=== PATIENT | female | born 1955 | race African-American/Black ===

== ENCOUNTER → 2016-09-17 | Outpatient (CLI) | payer OTHER ==
[~2016-09-17] MED LIST: HYDR-5688 PO; ONDA4TAB10 SL
== END | disposition home or self-care (01) ==
LOC: C.PAPS 11:18
PROVIDERS: ATTEND Obstetrics & Gynecology
DX: Z12.4 Encounter for screening for malignant neoplasm of cervix (principal)

== ENCOUNTER → 2016-10-01 | Outpatient (CLI) | payer OTHER ==
--- NOTE | 2016-10-03 13:19 | MAMMOGRAPHY REPORT ---
BILATERAL DIGITAL DIAGNOSTIC MAMMOGRAM TOMOSYNTHESIS WITH CAD AND TARGETED BILATERAL ULTRASOUND: 10/01 CLINICAL HISTORY: 60-year-old woman presents for bilateral screening mammography. She has a history of prior benign left breast biopsy and breast pain. No new palpable mass, skin changes or nipple d ischarge. TECHNIQUE: Bilateral breast tomosynthesis in addition to standard 2D mammography was performed. Cur rent study was also evaluated with a Computer Aided Detection (CAD) system. COMPARISON: Comparison is made to exams dated: 03/17/2015 ultrasound, 03/17/2015 mammogram, 014 ultrasound biopsy, 03/17/2014 mammogram, 02/09/2014 ultrasound, and 02/09/2014 mammogram - [facility]. BREAST COMPOSITION: The tissue of both breasts is heterogeneously dense, which may obscure small ma sses. FINDINGS: There is a stable ribbon shaped metallic biopsy marker with a partially calcified round ma ss in the lower inner, 8:00 left breast. There is stable asymmetry along the anterior aspect of thi s biopsied mass. There is a 6.6 mm asymmetry in the middle of the left breast, along the posterior nipple line on the MLO view that is increasingly conspicuous comparing to the prior mammograms. The symphysis images are equivocal for mass. There is also increased nodularity in the lateral, middle one third left breast on the CC view. Other increasingly conspicuous nodular asymmetries are seen along the right posterior nipple line and lateral to the posterior nipple line on the CC view. No f ocal area of architectural distortion or new suspicious clustered microcalcifications are seen bilat erally. Real-time high-resolution ultrasound was performed breasts. Scattered anechoic and hypoechoic kylie s are seen bilaterally. In particular, there is an elongated parallel hypoechoic solid versus cysti c mass in the 12:00 left breast, 2 cm from the nipple, measuring 5.0 x 2.2 x 4.5 mm. A 4.4 mm anech oic benign simple cyst is identified in the 1:00 left breast, 4 cm from the nipple. A 4.0 mm anecho ic cyst is seen in the 1:00 left breast, 2 cm from the nipple.a predominately anechoic cystic appear ing mass is seen in the 1:00 periareolar left breast measuring 5.2 mm. a mixed echogenicity hypoecho ic cystic-appearing mass, possibly representing a cluster of microcysts is identified in the 2:00 le ft breast, 5 cm from the nipple, measuring 4.5 x 2.5 x 5.7 mm. In the 3:00 periareolar left breast, a 3.7 x 2.6 x 3.5 mm hypoechoic solid versus cystic mass is identified. Another probable microcyst cluster is seen in the 4:00 left breast, 2 cm from the nipple, measuring 2.8 x 3.1 x 2.5 mm. 2 abu tting masses are identified in the 8:00 left breast, 1 cm from the nipple, the superficial mass is semi-[place] in shape and deeper mass is round in shape, measuring 9.3 x 9.4 x 7.2 mm in conglomerate . These appear similar in size comparing to the March 2014 ultrasound, at which time they measure d approximately 8.5 x 10.6 x 6.7 mm. Another predominantly anechoic probable microcystic cluster is identified in the 8:00 left breast, 2 cm from the nipple adjacent measuring 3.6 x 3.3 mm. A rounde d anechoic cyst is seen in the left 11:00 breast, 4 cm from the nipple, measuring 3.2 x 3.2 x 3.7 mm . Within the right 12:00 breast, 3 cm from the nipple, there is a oval hypoechoic solid versus cystic mass measuring 3.3 x 2.9 x 6.3 mm. An oval circumscribed hypoechoic solid versus cystic mass in the 1:00 right breast, 3 cm from the nipple, measures 3.6 x 2.3 x 4.5 mm. Another hypoechoic solid caden senait cystic circumscribed mass in the 1:00 right breast, 3 cm from the nipple measures 3.8 x 2.2 x 2. 8 mm. No other discrete solid or cystic mass is seen in the right breast. IMPRESSION: ACR-BI-RADS CATEGORY 3: PROBABLY BENIGN, TARGETED ULTRASOUND ACR-BI-RADS CATEGORY 3: AL OBABLY BENIGN 1. There is increasing mammographic nodularity bilaterally, which is most likely secondary to fibro cystic changes. Multiple anechoic cysts and cyst clusters are seen throughout the left greater than right breast on ultrasound. However, there are a few indeterminate hypoechoic solid versus cystic masses in the breasts for which follow-up is recommended in 6 months. In particular, repeat ultraso und attention to the right 12:00, 1:00 and left 12:00, 1:00, 2:00, 3:00, 8:00 axes is recommended (3 0 minutes). These results recommendations were discussed with the patient at the time of the exam. She federico wall scheduled a follow-up appointment prior to leaving our department. Approximately 10% of breast cancers are not detected with mammography. A negative mammographic repor t should not delay biopsy if a clinically suggestive mass is present. Zonia Cervantes M.D. ay/:10/02/2016 22:15:44 Package Worker: Gloria SANCHEZ(Kajal)(Binta), [facility] letter sent: Follow Up Recommended 3 BI-RADS Code: ACR-BI-RADS Category 3: Probably Benign Ultrasound BI-RADS: ACR-BI-RADS Category 3: P robably Benign
== END | disposition home or self-care (01) ==
LOC: C.MAMM 14:04
PROVIDERS: ATTEND Obstetrics & Gynecology
DX: N64.4 Mastodynia (principal); R92.8 Other abnormal and inconclusive findings on diagnostic imaging of breast

== ENCOUNTER 2016-12-20 12:02 | Observation (INO) | payer OTHER ==
[~2016-12-20] VITALS: Ht 167.6 cm; Wt 79.0 kg
[2016-12-20] MEDS ORDERED: SODIUM CHLORIDE 0.9% 1000ML 1,000 ML IV STA (12:26)
[2016-12-20] MEDS ORDERED: ONDANSETRON INJ 2 MG/ML 2 ML VIAL IV STA (12:26)
[2016-12-20] MEDS ORDERED: KETOROLAC TROMETHAMINE 30 MG/ML VIAL IV STA (12:26)
[2016-12-20] MEDS ORDERED: HYDROmorphone INJ 1 MG/ML SYR IV STA (12:26)
--- NOTE | 2016-12-20 12:54 | EMERGENCY ROOM VISIT NOTE ---
History Report prepared by Brook: Rani Reeves Under the Supervision of: Dr. Delmar Mehta M.D. 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 The pain wraps around into her bilateral back. She is also experiencing nausea and had one episode of vomiting. The patient came to the ED via ambulance and she was given 4 mg Zofran en route. She states that she is feeling better. The patient speaks Nepalese and very minimal Irish. The customer orders clerk was unavailable to translate the patient. Source of History: patient Onset: ELECTRICAL INSTRUMENT TECHNICIAN Position: abdomen (upper) Quality: other (abdominal pain) Timing: worsening Associated Symptoms: + nausea, + vomiting, + back pain (bilateral) Review of Systems See HPI for pertinent positives & negatives. A total of 10 systems reviewed and were otherwise negative. Past Medical & Surgical Medical Problems: (1) Cholelithiasis Surgical Problems: (1) H/O left breast biopsy Family History No pertinent family history Social History Smoking Status: Never Smoker Marital Status: Housing Status: lives with family Current/Historical Medications Scheduled PRN Hydrocodone/Acetaminophen 5MG/325MG ([place] 5MG/325MG), 1-2 TABLET PO Q4H PRN for Pain Allergies Coded Allergies: Morphine (Verified Allergy, Unknown, facial swelling, 12/20/16) Uncoded Allergies: Allergic reaction to unspecified contrast medium (Allergy, Intermediate, DELIRIUM, Swelling, 12/20/16) Unspecified contrast medium Physical Exam Vital Signs Date Time Temp Pulse Resp B/P (MAP) Pulse Ox O2 Delivery O2 Flow Rate FiO2 12/20/16 15:58 68 19 138/71 96 Room Air 12/20/16 13:59 61 16 131/71 96 Room Air 12/20/16 12:27 36.8 68 16 124/74 98 Room Air Physical Exam GENERAL: Patient is a healthy-appearing well-nourished female HEAD: Normocephalic atraumatic EYES: Ocular movements intact pupils equal and react to light OROPHARYNX mucous membranes are moist no exudates present no erythema or edema present NECK: Supple no nuchal rigidity CHEST: Good equal expansion LUNGS: Clear and equal to auscultation CARDIAC: Normal S1 and S2 ABDOMEN: Soft epigastric tenderness no guarding BACK: No CVA tenderness EXTREMITIES: No pain upon palpation normal muscle strength in all groups no clubbing cyanosis or edema NEURO: Patient is following commands and answering questions appropriately. Alert and oriented x3 Cranial Nerves 2-12 grossly intact Medical Decision & Procedures ER Provider Diagnostic Interpretation: Radiology results as stated below per my review and radiologist interpretation: ABD/PELVIS WITHOUT FOR STONE FINDINGS: lung bases are clear. Liver demonstrates several hypodense nodules which have been previous described as hemangiomas. There is no evidence of biliary duct distention. Gallbladder is mildly distended with several gallstones. Right upper quadrant ultrasound is suggested as follow-up. Kidneys negative for hydronephrosis or calcification. Bowel pattern is nonobstructive. The appendix is normal. Uterus is anteflexed. Bladder is midline with no contained calcifications. IMPRESSION: 1. Mildly distended gallbladder containing several gallstones and probable sludge. 2. Right upper quadrant ultrasonography is suggested as follow-up. 3. Several stable hepatic nodules which been described previously as hemangiomas. 4. Study is otherwise negative. The above report was generated using voice recognition software. It may contain grammatical, syntax or spelling errors. Electronically signed by: Audie Corbin M.D. 12/20/2016 1:29 PM Dictated Date/Time: 12/20/2016 1:24 PM Laboratory Results Test 12/20/16 12:50 12/20/16 12:55 Urine Color YELLOW Urine Appearance CLEAR (CLEAR) Urine pH 6.5 (4.5-7.5) Urine Specific Stella 1.023 (1.000-1.030) Urine Protein NEG (NEG) Urine Glucose (UA) NEG (NEG) Urine Ketones TRACE (NEG) Urine Occult Blood 1+ (NEG) Urine Nitrite NEG (NEG) Urine Bilirubin NEG (NEG) Urine Urobilinogen NEG (NEG) Urine Leukocyte Esterase NEG (NEG) Urine WBC (Auto) 1-5 /hpf (0-5) Urine RBC (Auto) 5-10 /hpf (0-4) Urine Hyaline Casts (Auto) 0 /lpf (0-5) Urine Epithelial Cells (Auto) 10-20 /lpf (0-5) Urine Bacteria (Auto) NEG (NEG) Lipase 310 U/L (73-393) Labs reviewed by ED physician. Medications Administered Medications (Trade) Dose Ordered Sig/Yumi Route Start Time Stop Time Status Last Admin Dose Admin Sodium Chloride 1,000 ml @ 999 mls/hr Q1H1M STAT IV 12/20/16 12:26 12/20/16 13:26 DC 12/20/16 13:06 999 MLS/HR Ondansetron HCl (Zofran Inj) 4 mg STK-MED ONCE .ROUTE 12/20/16 14:30 12/20/16 14:31 DC 12/20/16 14:32 4 MG Cefoxitin Sodium 2000 mg/Dextrose 60 ml @ 120 mls/hr TODAY@1630 ONCE IV 12/20/16 16:30 12/20/16 16:59 DC 12/20/16 16:24 120 MLS/HR ED Course 1223: Past medical records reviewed. The patient was evaluated in room B2. A complete history and physical examination was performed. 1226: Ordered Zofran Inj 4 mg IV, Dilaudid Inj 1 mg IV, Toradol Inj 30 mg IV 1226: Ordered Sodium Chloride 1000 ml @ 999 mls/hr IV 1306: The patient refused the Zofran, Dilaudid, and Toradol. 1340: I reassessed the patient and updated her . The patient's speaks Irish and translated for the patient. I let her know that I ordered an ultrasound. 1430: Ordered Zofran Inj 4 mg IV Medical Decision Differential diagnosis: Etiologies such as appendicitis, diverticulitis, PUD, biliary pathology, UTI, pancreatitis, obstruction, mesenteric ischemia, aortic pathology, infections, inflammatory bowel disease, renal colic, as well as others were entertained. This is a 61-year-old female who presents emergency department complaining of diffuse abdominal pain. The patient was sent for CAT scan abdomen and pelvis and head serial abdominal examinations performed on her. The patient did not exhibit a surgical abdomen however she remains tender the right upper quadrant. CAT scan is concerning for gallstones and so the patient was sent for an ultrasound of the right upper quadrant. The patient does not have an elevation in her white blood count has a normal renal profile has a normal liver profile has a normal lipase. The patient was given normal saline bolus however she refused pain medications in the emergency department. Medication Reconcilliation Current Medication List: was personally reviewed by me Blood Pressure Screening Patient's blood pressure: Elevated blood pressure Blood pressure disposition: Referred to PCP Impression Primary Impression: RUQ abdominal pain Scribe Attestation The scribe's documentation has been prepared under my direction and personally reviewed by me in its entirety. I confirm that the note above accurately reflects all work, treatment, procedures, and medical decision making performed by me. Departure Information Prescriptions Hydrocodone/Acetaminophen 5MG/325MG ([place] 5MG/325MG) Tab 1-2 TABLET PO Q4H Y for Pain, #30 TAB Prov: Harpreet Badillo D.O. 12/21/16 Referrals No Doctor, Assigned (PCP) Patient Instructions My [facility]
[2016-12-20 13:08] LABS: BASO % 0.2 %; BASO ABS # 0.01 K/uL (0-0.2); COMPLETE YES; HEMATOCRIT 44.3 % (37-47); LYMPH % 35.4 %; LYMPH ABS # 1.69 K/uL (1.2-3.4); MEAN CORPUSCULAR HEMOGLOBIN 28.8 pg (25-34); MEAN CORPUSCULAR HGB CONC 34.8 g/dl (32-36); MEAN PLATELET VOLUME 10.8 fL (7.4-10.4); MONO % 8.8 %; NEUT % 54.6 %; PLATELET COUNT 181 K/uL (130-400); RED BLOOD COUNT 5.34 M/uL (4.2-5.4); WHITE BLOOD COUNT 4.77 K/uL (4.8-10.8)
[2016-12-20 13:20] LABS: URINE APPEARANCE CLEAR (CLEAR); URINE BILIRUBIN NEG (NEG); URINE COLOR YELLOW; URINE NITRITE NEG (NEG); URINE PH 6.5 (4.5-7.5); URINE SPECIFIC GRAVITY 1.023 (1.000-1.030); UROBILINOGEN NEG (NEG)
[2016-12-20 13:23] LABS: MANUAL MICROSCOPIC REQUIRED? NO; REVIEW REQ? NO
[2016-12-20 13:29] LABS: ALT/SGPT 140 U/L (12-78); AST/SGOT 118 U/L (15-37); BLOOD UREA NITROGEN 18 mg/dl (7-18); BUN/CREATININE RATIO 19.5 (10-20); CALCIUM 9.9 mg/dl (8.5-10.1); CARBON DIOXIDE 29 mmol/L (21-32); CHLORIDE 106 mmol/L (98-107); CREATININE 0.94 mg/dl (0.60-1.20); GLUCOSE 92 mg/dl (70-99); POTASSIUM 3.7 mmol/L (3.5-5.1); SODIUM 140 mmol/L (136-145)
[2016-12-20 13:31] LABS: ALKALINE PHOSPHATASE 120 U/L (45-117)
--- NOTE | 2016-12-20 13:31 | DIAGNOSTIC IMAGING REPORT ---
ABD/PELVIS WITHOUT FOR STONE CT DOSE: 979.82 mGycm HISTORY: Pain Pt c/o abd pain TECHNIQUE: Multiaxial CT images of the abdomen and pelvis were performed without the use of intravenous and oral contrast according to the standard department stone protocol. A dose lowering technique was utilized adhering to the principles of ALARA. COMPARISON STUDY: 10/25/2014 FINDINGS: lung bases are clear. Liver demonstrates several hypodense nodules which have been previous described as hemangiomas. There is no evidence of biliary duct distention. Gallbladder is mildly distended with several gallstones. Right upper quadrant ultrasound is suggested as follow-up. Kidneys negative for hydronephrosis or calcification. Bowel pattern is nonobstructive. The appendix is normal. Uterus is anteflexed. Bladder is midline with no contained calcifications. IMPRESSION: 1. Mildly distended gallbladder containing several gallstones and probable sludge. 2. Right upper quadrant ultrasonography is suggested as follow-up. 3. Several stable hepatic nodules which been described previously as hemangiomas. 4. Study is otherwise negative. The above report was generated using voice recognition software. It may contain grammatical, syntax or spelling errors. Electronically signed by: Audie Corbin M.D. 12/20/2016 1:29 PM Dictated Date/Time: 12/20/2016 1:24 PM
[2016-12-20] MEDS ORDERED: ONDANSETRON INJ 2 MG/ML 2 ML VIAL ONE (14:30)
--- NOTE | 2016-12-20 15:48 | DIAGNOSTIC IMAGING REPORT ---
ABDOMEN LIMITED (US) HISTORY: Nausea. Pain. Pt c/o RUQ abd pain. COMPARISON: CT examination same date FINDINGS: Pancreas: The pancreas demonstrates a normal echotexture. Liver: Unremarkable. Gallbladder: Gallstones. Partial thickening of the gallbladder wall to 4.5 mm. Balloon ductal prominence with the extrahepatic common mild duct 10 mm. Mild prominence of intrahepatic ducts. Right kidney is negative for hydronephrosis. CBD: 10 mm Right kidney: No evidence for hydronephrosis IMPRESSION: 1. Gallstones with a small amount of gallbladder sludge. 2. Mild distention of the intra and extrahepatic biliary ducts with common bile duct 10 mm 3. Mild gallbladder wall thickening at 4.5 mm, although no pericholecystic fluid is identified. 4. MRCP may be considered in this patient to exclude a distal common duct lesion versus nonvisualized choledocholithiasis. The above report was generated using voice recognition software. It may contain grammatical, syntax or spelling errors. Electronically signed by: Audie Corbin M.D. 12/20/2016 3:46 PM Dictated Date/Time: 12/20/2016 3:43 PM
[2016-12-20] MEDS ORDERED: CEFOXITIN 2000MG/60 ML D5W IV STA (16:04)
[2016-12-20] MEDS ORDERED: CEFOXITIN IV 2,000 MG in DEXTROSE 5% 50ML 50 ML IV ONE (16:30)
[2016-12-20] MEDS ORDERED: IV FLUIDS COMPLETED PRN (19:30)
--- NOTE | 2016-12-20 20:02 | DIAGNOSTIC IMAGING REPORT ---
MRCP CLINICAL HISTORY: Right-sided abdominal pain. Cholelithiasis. Common bile duct dilatation. COMPARISON STUDY: Biliary ultrasound dated 12/20/2016, CT scan dated 12/20/2016 FINDINGS: There are multiple T2 bright left lobe hepatic lesions, consistent with the patient's known hemangiomas. Multiple gallstones are visualized. The common bile duct appears normal. No ductal filling defects are visualized. The common bile duct measures 6 mm. The left main hepatic duct appears slightly beaded. The common hepatic duct is mildly dilated measuring 14 mm. No pancreatic ductal lesions are visualized. There is no pancreatic ductal dilatation. IMPRESSION: 1. Multiple T2 bright left lobe hepatic mass is likely representing hemangiomas 2. Mild dilatation of the common hepatic duct. Slightly beaded left main hepatic duct 3. Cholelithiasis. No common bile duct calculi identified 4. Normal pancreatic duct Electronically signed by: Marcelino Faith M.D. 12/20/2016 8:01 PM Dictated Date/Time: 12/20/2016 7:56 PM
[2016-12-20 20:07] VITALS: BP 131/75; TEMP 36.8; Ht 167.6 cm; Wt 79.0 kg
--- NOTE | 2016-12-20 20:41 | History and Physical ---
History & Physical Date & Time of Service: Dec 20, 2016 at 17:55 Chief Complaint: Flank Pain N/V Primary Care Physician: No Doctor, Assigned History of Present Illness Source: patient, family Pt is a 61 yo female with a h/o smoking who presents with epigastric abd pain that was severe as well as N/V at home. No fevers but was profusely diaphoretic during the pain. She came by EMS and after admission was found to have elevated LFTs and gallstones with sludge and a dilated CBD seen on right upper quadrant ultrasound. The patient and her report that she had very similar symptoms about 2 days ago as well. The patient primarily speaks Welsh, but does speak a little bit of Finnish and between her and her who speaks a little bit of Welsh, I was able to complete the history. At the time I saw her in the ER, she was completely pain free and feeling very well. I suspect she passed her gallstone, which she be admitted for observation and get an MRCP given the common bile duct dilatation seen previously, as well as a general surgery consultation. Past Medical/Surgical History Past medical history: Current smoker Surgical Problems: (1) H/O left breast biopsy Medications: None Family History No pertinent family history None significant Social History Smoking Status: Current Every Day Smoker (one pack per day) Alcohol Use: occasionally (1 time per month) Drug Use: none Marital Status: Housing status: lives with significant other Allergies Coded Allergies: Morphine (Verified Allergy, Unknown, facial swelling, 12/20/16) Uncoded Allergies: Allergic reaction to unspecified contrast medium (Allergy, Intermediate, DELIRIUM, Swelling, 12/20/16) Unspecified contrast medium Home Medications Unable to Obtain Active Prescriptions or Reported Meds Review of Systems Constitutional: + sweats, No fever, No chills Eyes: No problem reported ENT: No problem reported Respiratory: No shortness of breath Cardiovascular: No chest pain Abdomen: + pain, + nausea, + vomiting Musculoskeletal: No problem reported Genitourinary - Female: No problem reported Neurologic: No problem reported Psychiatric: No problem reported Endocrine: No problem reported Hematologic / Lymphatic: No problem reported Integumentary: No problem reported Allergic / Immunologic: No problem reported Physical Exam Vital Signs Date Time Temp Pulse Resp B/P (MAP) Pulse Ox O2 Delivery O2 Flow Rate FiO2 12/20/16 15:58 68 19 138/71 96 Room Air 12/20/16 13:59 61 16 131/71 96 Room Air 12/20/16 12:27 36.8 68 16 124/74 98 Room Air General Appearance: WD/WN, no apparent distress Head: normocephalic, atraumatic Eyes: normal inspection, EOMI, sclerae normal ENT: hearing grossly normal, pharynx normal Neck: supple, trachea midline Respiratory/Chest: lungs clear, normal breath sounds, no respiratory distress, no accessory muscle use Cardiovascular: regular rate, rhythm, no edema, no gallop, no murmur, normal peripheral pulses Abdomen/GI: normal bowel sounds, non tender, soft, no organomegaly, no pulsatile mass Back: normal inspection Extremities/Musculoskelatal: normal inspection, no calf tenderness, normal capillary refill, no pedal edema, normal range of motion Neurologic/Psych: alert, normal mood/affect, oriented x 3 Skin: normal color, warm/dry, no rash Lymphatic: no adenopathy Diagnostics Laboratory Results Results Past 24 Hours Test 12/20/16 12:50 12/20/16 12:55 Range/Units Urine Color YELLOW Urine Appearance CLEAR CLEAR Urine pH 6.5 4.5-7.5 Urine Specific [place] 1.023 1.000-1.030 Urine Protein NEG NEG Urine Glucose (UA) NEG NEG Urine Ketones TRACE NEG Urine Occult Blood 1+ NEG Urine Nitrite NEG NEG Urine Bilirubin NEG NEG Urine Urobilinogen NEG NEG Urine Leukocyte Esterase NEG NEG Urine WBC (Auto) 1-5 0-5 /hpf Urine RBC (Auto) 5-10 0-4 /hpf Urine Hyaline Casts (Auto) 0 0-5 /lpf Urine Epithelial Cells (Auto) 10-20 0-5 /lpf Urine Bacteria (Auto) NEG NEG White Blood Count 4.77 4.8-10.8 K/uL Red Blood Count 5.34 4.2-5.4 M/uL Hemoglobin 15.4 12.0-16.0 g/dL Hematocrit 44.3 37-47 % Mean Corpuscular Volume 83.0 80-100 fL Mean Corpuscular Hemoglobin 28.8 25-34 pg Mean Corpuscular Hemoglobin Concent 34.8 32-36 g/dl Platelet Count 181 130-400 K/uL Mean Platelet Volume 10.8 7.4-10.4 fL Neutrophils (%) (Auto) 54.6 % Lymphocytes (%) (Auto) 35.4 % Monocytes (%) (Auto) 8.8 % Eosinophils (%) (Auto) 1.0 % Basophils (%) (Auto) 0.2 % Neutrophils # (Auto) 2.60 1.4-6.5 K/uL Lymphocytes # (Auto) 1.69 1.2-3.4 K/uL Monocytes # (Auto) 0.42 0.11-0.59 K/uL Eosinophils # (Auto) 0.05 0-0.5 K/uL Basophils # (Auto) 0.01 0-0.2 K/uL RDW Standard Deviation 43.1 36.4-46.3 fL RDW Coefficient of Variation 14.1 11.5-14.5 % Immature Granulocyte % (Auto) 0.0 % Immature Granulocyte # (Auto) 0.00 0.00-0.02 K/uL Sodium Level 140 136-145 mmol/L Potassium Level 3.7 3.5-5.1 mmol/L Chloride Level 106 98-107 mmol/L Carbon Dioxide Level 29 21-32 mmol/L Anion Gap 5.0 3-11 mmol/L Blood Urea Nitrogen 18 7-18 mg/dl Creatinine 0.94 0.60-1.20 mg/dl Estimated GFR () 75.9 Estimated GFR (Non- 65.5 BUN/Creatinine Ratio 19.5 10-20 Random Glucose 92 70-99 mg/dl Calcium Level 9.9 8.5-10.1 mg/dl Total Bilirubin 0.9 0.2-1 mg/dl Direct Bilirubin 0.5 0-0.2 mg/dl Aspartate Amino Transf (AST/SGOT) 118 15-37 U/L Alanine Aminotransferase (ALT/SGPT) 140 12-78 U/L Alkaline Phosphatase 120 45-117 U/L Total Protein 7.3 6.4-8.2 gm/dl Albumin 3.7 3.4-5.0 gm/dl Lipase 310 73-393 U/L Diagnostic Radiology CT abdomen/pelvis: 1. Mildly distended gallbladder containing several gallstones and probable sludge. 2. Right upper quadrant ultrasonography is suggested as follow-up. 3. Several stable hepatic nodules which been described previously as hemangiomas. 4. Study is otherwise negative. Abdominal ultrasound: 1. Gallstones with a small amount of gallbladder sludge. 2. Mild distention of the intra and extrahepatic biliary ducts with common bile duct 10 mm 3. Mild gallbladder wall thickening at 4.5 mm, although no pericholecystic fluid is identified. 4. MRCP may be considered in this patient to exclude a distal common duct lesion versus nonvisualized choledocholithiasis. Impression Assessment and Plan Pt is a 61 yo female with a h/o smoking who presents with epigastric abd pain that was severe as well as N/V at home. No fevers but was profusely diaphoretic during the pain. She came by EMS and after admission was found to have elevated LFTs and gallstones with sludge and a dilated CBD seen on right upper quadrant ultrasound. The patient and her report that she had very similar symptoms about 2 days ago as well. The patient primarily speaks Welsh, but does speak a little bit of Finnish and between her and her who speaks a little bit of Welsh, I was able to complete the history. At the time I saw her in the ER, she was completely pain free and feeling very well. I suspect she passed her gallstone, which she be admitted for observation and get an MRCP given the common bile duct dilatation seen previously, as well as a general surgery consultation. Of note, she did receive 1 dose of antibiotics in the ER. Symptomatic cholelithiasis, nausea/vomiting, epigastric abdominal pain, elevated transaminases and alkaline phosphatase-symptoms and labs as well as imaging CONSISTENT with symptomatic cholelithiasis. It seems that she probably passed this stone at this time given the recurrence over the last few days, she should be evaluated by general surgery for an elective cholecystectomy and follow her LFTs. Because of the dilatation of the common bile duct, she should also have an MRCP. -MRCP to rule out choledocholithiasis -General surgery consultation appreciated-I discussed the case with Dr. Badillo over the phone and he agrees to see the patient tomorrow -Follow LFTs in the morning -No signs of acute cholecystitis at this time, so antibiotics will not be continued -Nothing by mouth after midnight in case of need for surgery tomorrow -Zofran as needed when necessary for nausea -Patient refusing pain meds otherwise Current smoker-smoking cessation was strongly encouraged Prophylaxis-SCDs Disposition-full code To home either after cholecystectomy or to home with plans for outpatient cholecystectomy in the near future Level of Care Med/Surg Resuscitation Status FULL RESUSCITATION VTE Prophylaxis VTE Risk Assessment Done? Y/N: Yes Risk Level: Low Given or contraindicated: SCD's
[2016-12-21] VITALS (8 sets, daily range): BP systolic 114–135; BP diastolic 60–80; PULSE 51–65; TEMP 36.4–36.9; O2SAT 95–100
[2016-12-21] MEDS ORDERED: NURSING VERBAL MED ORDER ONE (02:30)
[2016-12-21] MEDS ORDERED: HYDROmorphone INJ 1 MG/ML SYR ONE (02:38)
[2016-12-21 07:02] LABS: HEMATOCRIT 43.6 % (37-47); MEAN CELL VOLUME 83.8 fL (80-100); MEAN CORPUSCULAR HEMOGLOBIN 27.5 pg (25-34); MEAN CORPUSCULAR HGB CONC 32.8 g/dl (32-36); MEAN PLATELET VOLUME 10.8 fL (7.4-10.4); PLATELET COUNT 169 K/uL (130-400)
[2016-12-21 07:37] LABS: BUN/CREATININE RATIO 15.9 (10-20); CALCIUM 8.9 mg/dl (8.5-10.1); CREATININE 0.9 mg/dl (0.60-1.20); MAGNESIUM 2.1 mg/dl (1.8-2.4); POTASSIUM 3.8 mmol/L (3.5-5.1)
[2016-12-21 08:25] LABS: BASO % 0.5 %; BASO ABS # 0.02 K/uL (0-0.2); COMPLETE YES; ECHINOCYTES 1+; EOS % 4.3 %; IG% 0.3 %; LYMPH % 50.5 %; LYMPH ABS # 2.02 K/uL (1.2-3.4); MONO % 9.3 %; NEUT % 35.1 %
--- NOTE | 2016-12-21 08:56 | Surgery Consultation ---
Consultation Date of Consultation: Dec 21, 2016. Attending Physician: Mario Dela Cruz MD, PhD History of Present Illness pt was having RUQ pain and nausea. feeling better currently. Past Medical/Surgical History Surgical Problems: (1) H/O left breast biopsy Status: Chronic Family History No pertinent family history Social History Smoking Status: Current Every Day Smoker Alcohol Use: occasionally Drug Use: none Marital Status: Housing Status: lives with family Allergies Coded Allergies: Morphine (Verified Allergy, Unknown, facial swelling, 12/20/16) Uncoded Allergies: Allergic reaction to unspecified contrast medium (Allergy, Intermediate, DELIRIUM, Swelling, 12/20/16) Unspecified contrast medium Home Medications Unable to Obtain Active Prescriptions or Reported Meds Current Inpatient Medications Current Inpatient Medications Medications (Trade) Dose Ordered Sig/Yumi Route Start Time Stop Time Status Last Admin Dose Admin Ondansetron HCl (Zofran Inj) 4 mg Q6H PRN IV 12/20/16 17:30 01/19/17 17:29 Miscellaneous (Iv Fluids Completed) 1 ea PRN PRN N/A 12/20/16 19:30 12/20/17 19:29 Review of Systems Constitutional: + problem reported Abdomen: + pain, + nausea Physical Exam Date Time Temp Pulse Resp B/P (MAP) Pulse Ox O2 Delivery O2 Flow Rate FiO2 12/21/16 07:11 36.6 60 16 128/73 (91) 96 Room Air 12/21/16 00:12 36.7 64 16 128/60 (82) 98 Room Air 12/21/16 00:12 Room Air 12/20/16 20:07 36.8 18 131/75 Room Air 12/20/16 20:05 Room Air 12/20/16 19:03 65 18 131/75 96 12/20/16 17:56 62 18 135/77 93 Room Air 12/20/16 15:58 68 19 138/71 96 Room Air 12/20/16 13:59 61 16 131/71 96 Room Air 12/20/16 12:27 36.8 68 16 124/74 98 Room Air General Appearance: no apparent distress Head: normocephalic, atraumatic Eyes: EOMI, sclerae normal ENT: hearing grossly normal Neck: supple, no JVD Respiratory/Chest: no respiratory distress, no accessory muscle use Cardiovascular: regular rate, rhythm Abdomen/GI: soft, + pertinent finding (+RUQ ttp) Neurologic/Psych: alert, oriented x 3 Skin: normal color, warm/dry Laboratory Results Last 24 Hours Test 12/20/16 12:50 12/20/16 12:55 12/21/16 06:41 Urine Color YELLOW Urine Appearance CLEAR Urine pH 6.5 Urine Specific [place] 1.023 Urine Protein NEG Urine Glucose (UA) NEG Urine Ketones TRACE Urine Occult Blood 1+ Urine Nitrite NEG Urine Bilirubin NEG Urine Urobilinogen NEG Urine Leukocyte Esterase NEG Urine WBC (Auto) 1-5 /hpf Urine RBC (Auto) 5-10 /hpf Urine Hyaline Casts (Auto) 0 /lpf Urine Epithelial Cells (Auto) 10-20 /lpf Urine Bacteria (Auto) NEG White Blood Count 4.77 K/uL 4.00 K/uL Red Blood Count 5.34 M/uL 5.20 M/uL Hemoglobin 15.4 g/dL 14.3 g/dL Hematocrit 44.3 % 43.6 % Mean Corpuscular Volume 83.0 fL 83.8 fL Mean Corpuscular Hemoglobin 28.8 pg 27.5 pg Mean Corpuscular Hemoglobin Concent 34.8 g/dl 32.8 g/dl Platelet Count 181 K/uL 169 K/uL Mean Platelet Volume 10.8 fL 10.8 fL Neutrophils (%) (Auto) 54.6 % 35.1 % Lymphocytes (%) (Auto) 35.4 % 50.5 % Monocytes (%) (Auto) 8.8 % 9.3 % Eosinophils (%) (Auto) 1.0 % 4.3 % Basophils (%) (Auto) 0.2 % 0.5 % Neutrophils # (Auto) 2.60 K/uL 1.41 K/uL Lymphocytes # (Auto) 1.69 K/uL 2.02 K/uL Monocytes # (Auto) 0.42 K/uL 0.37 K/uL Eosinophils # (Auto) 0.05 K/uL 0.17 K/uL Basophils # (Auto) 0.01 K/uL 0.02 K/uL RDW Standard Deviation 43.1 fL 42.8 fL RDW Coefficient of Variation 14.1 % 14.0 % Immature Granulocyte % (Auto) 0.0 % 0.3 % Immature Granulocyte # (Auto) 0.00 K/uL 0.01 K/uL Sodium Level 140 mmol/L 143 mmol/L Potassium Level 3.7 mmol/L 3.8 mmol/L Chloride Level 106 mmol/L 108 mmol/L Carbon Dioxide Level 29 mmol/L 28 mmol/L Anion Gap 5.0 mmol/L 7.0 mmol/L Blood Urea Nitrogen 18 mg/dl 14 mg/dl Creatinine 0.94 mg/dl 0.90 mg/dl Estimated GFR () 75.9 80.0 Estimated GFR (Non- 65.5 69.0 BUN/Creatinine Ratio 19.5 15.9 Random Glucose 92 mg/dl 76 mg/dl Calcium Level 9.9 mg/dl 8.9 mg/dl Total Bilirubin 0.9 mg/dl 0.5 mg/dl Direct Bilirubin 0.5 mg/dl 0.1 mg/dl Aspartate Amino Transf (AST/SGOT) 118 U/L 110 U/L Alanine Aminotransferase (ALT/SGPT) 140 U/L 201 U/L Alkaline Phosphatase 120 U/L 116 U/L Total Protein 7.3 gm/dl 6.6 gm/dl Albumin 3.7 gm/dl 3.2 gm/dl Lipase 310 U/L Echinocytes 1+ Est Creatinine Clear Calc Drug Dose 69.6 ml/min Magnesium Level 2.1 mg/dl Assessment & Plan 1. calculous cholecystitis MRCP negative for CBD stone LFT's improving d/w pt via acting as educational interpreter the rec for lap michaela today. discussed options and risks ( bleeding/infection/dvt/pe/mi/injury to bile ducts or bowel etc...) questions answered. they wish to proceed with lap michaela . will plan for today.
[2016-12-21] MEDS ORDERED: PROPOFOL IV EMULSION 10 MG/ML 20 ML VIAL IV ONE (09:39)
[2016-12-21] MEDS ORDERED: ROCURONIUM BROMIDE 10 MG/ML 5 ML VIAL ONE (09:39)
[2016-12-21] MEDS ORDERED: LIDOCAINE 2% 20 MG/ML 5ML SYR ONE (09:39)
[2016-12-21] MEDS ORDERED: MIDAZOLAM HCL 1 MG/ML 2ML VIAL ONE (09:42)
[2016-12-21] MEDS ORDERED: FENTANYL CITRATE INJ 50 MCG/1 ML 2 ML VIAL ONE ×4 (09:43→14:53)
[2016-12-21] MEDS ORDERED: SCOPOLAMINE 1.5 MG TDSY TD ONE (12:11)
[2016-12-21] MEDS ORDERED: CEFAZOLIN SOD 1 GM VIAL ONE (12:29)
[2016-12-21] MEDS ORDERED: BUPIVACAINE/EPINEPHRINE 0.5% MPF 1:200,000 10 ML VIAL ONE (12:35)
[2016-12-21] MEDS ORDERED: HYDR-5688 PO (13:03)
--- NOTE | 2016-12-21 13:04 | Discharge Instructions ---
Discharge Instructions Date of Service Dec 21, 2016. Admission Reason for Admission: Cholelithiasis Discharge Discharge Diagnosis / Problem: symptomatic cholelithiasis Discharge Goals Goal(s): Decrease discomfort Activity Recommendations Activity Limitations: as noted below Lifting Limitations: no more than 10 pounds Exercise/Sports Limitations: until after follow-up appointment May Resume Sexual Activity: after follow-up appointment Shower/Bathe: no limitations . Instructions / Follow-Up Instructions / Follow-Up call [phone] for follow up appointment with Dr. Badillo within 1-2 weeks or if you have any questions/concerns Current Hospital Diet Patient's current hospital diet: Clear Liquid Diet Discharge Diet Recommended Diet: Regular Diet Procedures Procedures Performed: lap michaela Pending Studies Studies pending at discharge: yes List of pending studies: path report Medical Emergencies . Who to Call and When: Medical Emergencies: If at any time you feel your situation is an emergency, please call 911 immediately. . Non-Emergent Contact Non-Emergency issues call your: Primary Care Provider, Surgeon Call Non-Emergent contact if: temperature is above 101, wound has increased drainage, wound has increased redness, wound has increased pain . "Provider Documentation" section prepared by Harpreet Badillo. . VTE Core Measure Inpt VTE Proph given/why not?: SCD's
[2016-12-21] MEDS ORDERED: DEXAMETHASONE SOD INJ 4 MG/ML VIAL ONE (13:19)
[2016-12-21] MEDS ORDERED: ONDANSETRON INJ 2 MG/ML 2 ML VIAL ONE ×2 (13:19→14:40)
[2016-12-21] MEDS ORDERED: SUCCINYLCHOLINE CHLORIDE 20 MG/ML 10 ML VIAL IV ONE (13:26)
[2016-12-21] MEDS ORDERED: EpHEDrine SULFATE INJ 50 MG/ML AMP IV PRN (13:45)
[2016-12-21] MEDS ORDERED: ONDANSETRON INJ 2 MG/ML 2 ML VIAL IV PRN (13:45)
[2016-12-21] MEDS ORDERED: ATROPINE SULFATE 0.1 MG/ML 5ML SYR IV PRN (13:45)
[2016-12-21] MEDS ORDERED: EpHEDrine SULFATE 50MG/5ML SYR ONE (13:55)
[2016-12-21] MEDS ORDERED: GLYCOPYRROLATE INJ 0.2 MG/ML VIAL ONE (14:06)
[2016-12-21] MEDS ORDERED: NEOSTIGMINE METHYLSULFATE 5 MG/5 ML SYR ONE (14:06)
--- NOTE | 2016-12-21 14:21 | [facility] Operative Report ---
Operative Report Operative Date Dec 21, 2016. Pre-Operative Diagnosis calculous cholecystitis Post-Operative Diagnosis calculous cholecystitis Procedure(s) Performed Laparoscopic Cholecystectomy Surgeon Dr. Badillo Plumbing Warehouse Helper Surgeon(s) None Estimated Blood Loss 20mL Findings slightly thickened gallbladder wall with stones; dilated CBD Specimens Specimen A. Gallbladder Anesthesia get Complication(s) None Disposition Recovery Room / PACU Description of Procedure After informed consent was obtained the patient was taken the operating suite placed in supine position. After successful intubation the abdomen was sterilely prepped and draped in usual fashion. A supraumbilical incision was made with an 11 blade scalpel and carried down through the soft tissue using electrocautery. The anterior rectus fascia was opened using electrocautery and 2 #0 Vicryl stay sutures were placed. Peritoneum was entered using blunt finger penetration and a finger sweep was performed. A 12 mm Penny trocar was placed in the abdomen was insufflated to 18 mmHg. Laparoscope was inserted in the abdomen and the abdomen examined in 360. A subxiphoid 5 mm port was originally placed but this would be converted later to a 12 mm port. 2 right upper quadrant 5 mm ports were also placed under direct vision. The patient was then placed in a reverse Trendelenburg position and slightly airplaned to the left. The gallbladder itself was slightly thickened and distended. It was grasped and elevated superiorly and laterally. The common bile duct was readily apparent and appeared dilated as did the cystic duct. I was able to skeletonize the cystic duct. However due to the size of it I was unable to use a clip manager clinical instead use a LANI 45mm kumar cartridge to come across the cystic duct. I was then able skeletonize the cystic artery clipped it twice proximally once distally and transected. Electrocautery was then used to remove the gallbladder from the gallbladder fossa. A small amount of bile did leak from the gallbladder due to trauma from the graspers. Once we removed the gallbladder I then thoroughly irrigated the right upper quadrant and suctioned out all the bile. Several small bleeding points on the gallbladder fossa were controlled using electrocautery. A Look around the abdomen abdomen showed no other gross abnormalities. We placed the gallbladder into an Endo Catch bag and removed from the camera port site. At the end of the procedure there was adequate hemostasis and no evidence of any bile leaks. A final irrigation was performed and all the trochars were removed. The fascia of the camera port was closed using 0 Vicryl in a [id number] fashion. All the wounds were irrigated and closed using 4-0 Monocryl. Marcaine was injected around the incisions for postoperative analgesia and skin glue used as a dressing. The patient was awaken extubated and transferred recovery in stable condition I attest to the content of the Intraoperative Record and any orders documented therein. Any exceptions are noted below.
[2016-12-21] MEDS ORDERED: KETOROLAC TROMETHAMINE 30 MG/ML VIAL ONE (14:33)
[2016-12-21] MEDS: FENTANYL CITRATE INJ 50 MCG/1 ML 2 ML VIAL IV PRN ×5 (14:55→15:13)
[2016-12-21] MEDS ORDERED: PROMETHAZINE HCL INJ 12.5 MG in SODIUM CHLORIDE 0.9% 50ML 50 ML IV PRN (15:00)
--- NOTE | 2016-12-21 15:21 | Anesthesiology Progress Note ---
Anesthesia Post Op Note Date & Time Dec 21, 2016 at 15:21 Vital Signs Pain Intensity: 3 Vital Signs Past 12 Hours Date Time Temp Pulse Resp B/P (MAP) Pulse Ox O2 Delivery O2 Flow Rate FiO2 12/21/16 15:15 54 19 12/21/16 15:15 54 19 98 12/21/16 15:13 51 12 12/21/16 15:13 55 22 99 12/21/16 15:11 135/77 12/21/16 15:08 51 18 100 12/21/16 15:08 51 18 12/21/16 15:06 141/83 12/21/16 15:02 52 29 97 12/21/16 15:02 53 23 97 12/21/16 15:01 146/74 12/21/16 14:56 145/80 12/21/16 14:52 54 18 12/21/16 14:52 55 18 98 12/21/16 14:51 135/70 12/21/16 14:47 53 24 97 12/21/16 14:47 53 27 98 12/21/16 14:46 142/70 12/21/16 14:41 142/76 12/21/16 14:37 55 21 134/48 92 12/21/16 14:37 55 15 90 12/21/16 14:32 57 29 98 12/21/16 14:32 62 19 95 12/21/16 14:30 121/70 12/21/16 14:28 127/65 12/21/16 14:27 36.1 66 20 127/65 95 Mask 10 12/21/16 08:00 Room Air 12/21/16 07:11 36.6 60 16 128/73 (91) 96 Room Air Notes Mental Status: alert / awake / arousable, participated in evaluation Pt Amnestic to Procedure: Yes Nausea / Vomiting: adequately controlled Pain: adequately controlled Airway Patency, RR, SpO2: stable & adequate BP & HR: stable & adequate Hydration State: stable & adequate Anesthetic Complications: no major complications apparent
--- NOTE | 2016-12-21 16:45 | Progress Note ---
Subjective Date of Service: Dec 21, 2016. Subjective Pt evaluation today including: conversation w/ patient, conversation w/ family , physical exam, chart review, lab review, review of studies, conversation w/ sap basis consultant, review of inpatient medication list back from surgery, c/o dry heave, and nausea, no vomiting Problem List Surgical Problems: (1) H/O left breast biopsy Status: Chronic Review of Systems Constitutional: + weakness, + fatigue, No fever, No chills, No sweats, No weight loss, No problem reported Eyes: No worsening of vision, No eye pain, No redness, No discharge, No diplopia ENT: No hearing loss, No unusual epistaxis, No nasal symptoms, No sore throat, No tinnitus, No dental problems, No trouble swallowing Respiratory: No cough, No sputum, No wheezing, No shortness of breath, No dyspnea on exertion, No dyspnea at rest, No hemoptysis Cardiac: No chest pain, No orthopnea, No PND, No edema, No claudication, No palpitations Abdomen: + diarrhea, No pain, No nausea, No vomiting, No constipation Musculoskeletal: No joint pain, No muscle pain, No swelling, No calf pain Female : No dysuria, No urinary frequency, No hematuria, No incontinence, No abnormal vaginal bleeding, No vaginal discharge Neurologic: No memory loss, No paralysis, No weakness, No numbness/tingling, No vertigo, No balance problems Psychiatric: No depression symptoms, No anhedonism, No anxiety, No insomnia, No substance abuse Heme: No abnormal bleeding/bruising, No clotting problems, No swollen lymph nodes, No night sweats Endo: No fatigue, No excessive thirst, No excessive urination Skin: No rash, No itch, No new/changing skin lesions, No color change, No bleeding Objective Vital Signs Date Time Temp Pulse Resp B/P (MAP) Pulse Ox O2 Delivery O2 Flow Rate FiO2 12/21/16 16:00 36.6 51 16 129/75 (93) 100 Nasal Cannula 2.0 12/21/16 15:21 48 12 145/83 99 12/21/16 15:21 49 12 12/21/16 15:16 137/79 12/21/16 15:16 36.3 48 18 145/83 99 Nasal Cannula 2 12/21/16 15:15 54 19 12/21/16 15:15 54 19 98 12/21/16 15:13 51 12 12/21/16 15:13 55 22 99 12/21/16 15:11 135/77 12/21/16 15:08 51 18 100 12/21/16 15:08 51 18 12/21/16 15:06 141/83 12/21/16 15:02 52 29 97 12/21/16 15:02 53 23 97 12/21/16 15:01 146/74 12/21/16 14:56 145/80 12/21/16 14:52 54 18 12/21/16 14:52 55 18 98 12/21/16 14:51 135/70 12/21/16 14:47 53 24 97 12/21/16 14:47 53 27 98 12/21/16 14:46 142/70 12/21/16 14:41 142/76 12/21/16 14:37 55 21 134/48 92 12/21/16 14:37 55 15 90 12/21/16 14:32 57 29 98 12/21/16 14:32 62 19 95 12/21/16 14:30 121/70 12/21/16 14:28 127/65 12/21/16 14:27 36.1 66 20 127/65 95 Mask 10 12/21/16 08:00 Room Air 12/21/16 07:11 36.6 60 16 128/73 (91) 96 Room Air 12/21/16 00:12 36.7 64 16 128/60 (82) 98 Room Air 12/21/16 00:12 Room Air 12/20/16 20:07 36.8 18 131/75 Room Air 12/20/16 20:05 Room Air 12/20/16 19:03 65 18 131/75 96 12/20/16 17:56 62 18 135/77 93 Room Air Physical Exam General Appearance: WD/WN, no apparent distress Eyes: normal inspection, PERRL, EOMI, sclerae normal ENT: normal ENT inspection, hearing grossly normal, pharynx normal Neck: supple, no adenopathy, thyroid normal, no JVD, no carotid bruits, trachea midline Respiratory/Chest: chest non-tender, lungs clear, normal breath sounds, no respiratory distress, no accessory muscle use Cardiovascular: regular rate, rhythm, no edema, no gallop, no JVD, no murmur Abdomen: normal bowel sounds, non tender, soft, no organomegaly, no pulsatile mass Extremities: normal range of motion, non-tender, normal inspection, no pedal edema, no calf tenderness, normal capillary refill, pelvis stable Neurologic/Psychiatric: 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, no motor/sensory deficits, alert, normal mood/affect, oriented x 3 Skin: normal color, warm/dry, no rash Lymphatic: no adenopathy Laboratory Results Last 24 Hours Test 12/21/16 06:41 12/21/16 12:09 White Blood Count 4.00 K/uL Red Blood Count 5.20 M/uL Hemoglobin 14.3 g/dL Hematocrit 43.6 % Mean Corpuscular Volume 83.8 fL Mean Corpuscular Hemoglobin 27.5 pg Mean Corpuscular Hemoglobin Concent 32.8 g/dl Platelet Count 169 K/uL Mean Platelet Volume 10.8 fL Neutrophils (%) (Auto) 35.1 % Lymphocytes (%) (Auto) 50.5 % Monocytes (%) (Auto) 9.3 % Eosinophils (%) (Auto) 4.3 % Basophils (%) (Auto) 0.5 % Neutrophils # (Auto) 1.41 K/uL Lymphocytes # (Auto) 2.02 K/uL Monocytes # (Auto) 0.37 K/uL Eosinophils # (Auto) 0.17 K/uL Basophils # (Auto) 0.02 K/uL RDW Standard Deviation 42.8 fL RDW Coefficient of Variation 14.0 % Immature Granulocyte % (Auto) 0.3 % Immature Granulocyte # (Auto) 0.01 K/uL Echinocytes 1+ Sodium Level 143 mmol/L Potassium Level 3.8 mmol/L Chloride Level 108 mmol/L Carbon Dioxide Level 28 mmol/L Anion Gap 7.0 mmol/L Blood Urea Nitrogen 14 mg/dl Creatinine 0.90 mg/dl Est Creatinine Clear Calc Drug Dose 69.6 ml/min Estimated GFR () 80.0 Estimated GFR (Non- 69.0 BUN/Creatinine Ratio 15.9 Random Glucose 76 mg/dl Calcium Level 8.9 mg/dl Magnesium Level 2.1 mg/dl Total Bilirubin 0.5 mg/dl Direct Bilirubin 0.1 mg/dl Aspartate Amino Transf (AST/SGOT) 110 U/L Alanine Aminotransferase (ALT/SGPT) 201 U/L Alkaline Phosphatase 116 U/L Total Protein 6.6 gm/dl Albumin 3.2 gm/dl Assessment and Plan Pt is a 61 yo female admitted on 12/20/2016 because of Symptomatic cholelithiasis , nausea/vomiting, epigastric abdominal pain, pt has a h/o smoking The patient primarily speaks Swedish, but does speak a little bit of Ukrainian and between her and her who speaks a little bit of Swedish, Symptomatic cholelithiasis s/p lap michaela, post op day 0 post op supportive care, possible clear liquid diet, advance as tolerated MRCP done on today, per report in below: 1. Multiple T2 bright left lobe hepatic mass is likely representing hemangiomas 2. Mild dilatation of the common hepatic duct. Slightly beaded left main hepatic duct 3. Cholelithiasis. No common bile duct calculi identified 4. Normal pancreatic duct abn LFT, heparitis panel ordered, and f/u diet per surgeon -Zofran as needed when necessary for nausea - Protonix iv - Tylenol as needed Current smoker-smoking cessation recs again in bedside Prophylaxis-SCDs Disposition-full code, and home if continue improving Continued [facility] stay due to: multiple IV medications needed Discharge planning: home
[2016-12-21] MEDS ORDERED: PANTOprazole INJ 40 MG in SYRINGE 0 ML IV ONE (17:00)
[2016-12-21 18:49] LABS: PROTHROMBIN TIME (PATIENT) 10.7 SECONDS (9.0-12.0)
[2016-12-21] MEDS: ONDANSETRON INJ 2 MG/ML 2 ML VIAL IV PRN (21:37)
[2016-12-22 03:00] VITALS: BP 119/72; PULSE 62; TEMP 36.9; O2SAT 95
[2016-12-22 07:01] LABS: COMPLETE YES; EOS % 0.1 %; HEMATOCRIT 40.6 % (37-47); IG% 0.3 %; LYMPH % 18.2 %; LYMPH ABS # 1.37 K/uL (1.2-3.4); MEAN CELL VOLUME 81.9 fL (80-100); MEAN CORPUSCULAR HEMOGLOBIN 27.6 pg (25-34); MEAN CORPUSCULAR HGB CONC 33.7 g/dl (32-36); MEAN PLATELET VOLUME 10.6 fL (7.4-10.4); MONO % 8.9 %; NEUT % 72.5 %; PLATELET COUNT 191 K/uL (130-400); RED BLOOD COUNT 4.96 M/uL (4.2-5.4); WHITE BLOOD COUNT 7.52 K/uL (4.8-10.8)
[2016-12-22 07:07] VITALS: BP 106/63; PULSE 64; TEMP 36.9; O2SAT 96
[2016-12-22 07:31] LABS: BUN/CREATININE RATIO 13.7 (10-20); CALCIUM 9.1 mg/dl (8.5-10.1); CREATININE 0.82 mg/dl (0.60-1.20); MAGNESIUM 2.1 mg/dl (1.8-2.4); POTASSIUM 3.7 mmol/L (3.5-5.1)
--- NOTE | 2016-12-22 10:26 | Surgery Progress Note ---
Surgery Progress Note Date of Service Dec 22, 2016. Subjective Post OP Day: 1 + feeling well pt feeling well/eating. some expected incisional discomfort. Objective Vital Signs: Date Time Temp Pulse Resp B/P (MAP) Pulse Ox O2 Delivery O2 Flow Rate FiO2 12/22/16 07:07 36.9 64 16 106/63 (77) 96 Room Air 12/22/16 03:00 36.9 62 18 119/72 (88) 95 Room Air 12/21/16 23:15 Room Air 12/21/16 22:50 36.9 58 18 127/74 (91) 95 Room Air 12/21/16 19:01 36.7 65 18 114/67 (83) 95 Room Air 12/21/16 18:00 36.5 60 18 121/71 (88) 96 Room Air 12/21/16 17:00 36.4 59 18 135/80 (98) 99 Nasal Cannula 1.0 12/21/16 16:30 36.5 61 18 129/80 (96) 100 Nasal Cannula 1.0 12/21/16 16:00 100 Nasal Cannula 2.0 12/21/16 16:00 36.6 51 16 129/75 (93) 100 Nasal Cannula 2.0 12/21/16 16:00 100 Nasal Cannula 2.0 12/21/16 15:21 48 12 145/83 99 12/21/16 15:21 49 12 12/21/16 15:16 137/79 12/21/16 15:16 36.3 48 18 145/83 99 Nasal Cannula 2 12/21/16 15:15 54 19 12/21/16 15:15 54 19 98 12/21/16 15:13 51 12 12/21/16 15:13 55 22 99 12/21/16 15:11 135/77 12/21/16 15:08 51 18 100 12/21/16 15:08 51 18 12/21/16 15:06 141/83 12/21/16 15:02 52 29 97 12/21/16 15:02 53 23 97 12/21/16 15:01 146/74 12/21/16 14:56 145/80 12/21/16 14:52 54 18 12/21/16 14:52 55 18 98 12/21/16 14:51 135/70 12/21/16 14:47 53 24 97 12/21/16 14:47 53 27 98 12/21/16 14:46 142/70 12/21/16 14:41 142/76 12/21/16 14:37 55 21 134/48 92 12/21/16 14:37 55 15 90 12/21/16 14:32 57 29 98 12/21/16 14:32 62 19 95 12/21/16 14:30 121/70 12/21/16 14:28 127/65 12/21/16 14:27 36.1 66 20 127/65 95 Mask 10 Abdomen: non distended, soft Incision(s): clean, dry, intact Laboratory Results: Results Past 24 Hours Test 12/21/16 18:10 12/22/16 06:31 Range/Units Prothrombin Time 10.7 9.0-12.0 SECONDS Prothromb Time International Ratio 1.0 0.9-1.1 Hepatitis B Surface Antigen NEG NEG Hepatitis C Antibody NEG NEG White Blood Count 7.52 4.8-10.8 K/uL Red Blood Count 4.96 4.2-5.4 M/uL Hemoglobin 13.7 12.0-16.0 g/dL Hematocrit 40.6 37-47 % Mean Corpuscular Volume 81.9 80-100 fL Mean Corpuscular Hemoglobin 27.6 25-34 pg Mean Corpuscular Hemoglobin Concent 33.7 32-36 g/dl Platelet Count 191 130-400 K/uL Mean Platelet Volume 10.6 7.4-10.4 fL Neutrophils (%) (Auto) 72.5 % Lymphocytes (%) (Auto) 18.2 % Monocytes (%) (Auto) 8.9 % Eosinophils (%) (Auto) 0.1 % Basophils (%) (Auto) 0.0 % Neutrophils # (Auto) 5.45 1.4-6.5 K/uL Lymphocytes # (Auto) 1.37 1.2-3.4 K/uL Monocytes # (Auto) 0.67 0.11-0.59 K/uL Eosinophils # (Auto) 0.01 0-0.5 K/uL Basophils # (Auto) 0.00 0-0.2 K/uL RDW Standard Deviation 41.1 36.4-46.3 fL RDW Coefficient of Variation 13.7 11.5-14.5 % Immature Granulocyte % (Auto) 0.3 % Immature Granulocyte # (Auto) 0.02 0.00-0.02 K/uL Sodium Level 139 136-145 mmol/L Potassium Level 3.7 3.5-5.1 mmol/L Chloride Level 105 98-107 mmol/L Carbon Dioxide Level 27 21-32 mmol/L Anion Gap 7.0 3-11 mmol/L Blood Urea Nitrogen 11 7-18 mg/dl Creatinine 0.82 0.60-1.20 mg/dl Est Creatinine Clear Calc Drug Dose 76.4 ml/min Estimated GFR () 89.5 Estimated GFR (Non- 77.2 BUN/Creatinine Ratio 13.7 10-20 Random Glucose 98 70-99 mg/dl Calcium Level 9.1 8.5-10.1 mg/dl Magnesium Level 2.1 1.8-2.4 mg/dl Total Bilirubin 1.4 0.2-1 mg/dl Direct Bilirubin 0.8 0-0.2 mg/dl Aspartate Amino Transf (AST/SGOT) 106 15-37 U/L Alanine Aminotransferase (ALT/SGPT) 179 12-78 U/L Alkaline Phosphatase 110 45-117 U/L Total Protein 6.2 6.4-8.2 gm/dl Albumin 3.1 3.4-5.0 gm/dl Assessment & Plan doing well clinically however LFT's elevated today recommend hold d/c for now and repeat LFT's tomorrow. CBD did appear dilated at time of surgery. may need repeat mrcp vs ercp if LFT' s continue to climb
[2016-12-22] MEDS ORDERED: PANTOprazole INJ 40 MG in SYRINGE 0 ML IV SCH (11:00)
[2016-12-22] MEDS: HYDROCODONE/ACETAMOPHEN 5/325MG TAB PO PRN ×2 (12:15→18:20)
[2016-12-22 13:11] VITALS: BP 97/60; PULSE 69; TEMP 36.8; O2SAT 95
[2016-12-22 15:03] VITALS: BP 114/70; PULSE 66; TEMP 37.1; O2SAT 96
--- NOTE | 2016-12-22 15:18 | Progress Note ---
Subjective Date of Service: Dec 22, 2016. Subjective Pt evaluation today including: conversation w/ patient, conversation w/ family , physical exam, chart review, lab review, review of studies, conversation w/ internet consultant, review of inpatient medication list Voiding: no voiding problems Tolerate clear liquid diet, mild nausea, mild abdominal pain, no fever and chill Problem List Surgical Problems: (1) H/O left breast biopsy Status: Chronic Review of Systems Constitutional: No fever, No chills, No sweats, No weight loss, No weakness, No fatigue, No problem reported Eyes: No worsening of vision, No eye pain, No redness, No discharge, No diplopia ENT: No hearing loss, No unusual epistaxis, No nasal symptoms, No sore throat, No tinnitus, No dental problems, No trouble swallowing Respiratory: No cough, No sputum, No wheezing, No shortness of breath, No dyspnea on exertion, No dyspnea at rest, No hemoptysis Cardiac: No chest pain, No orthopnea, No PND, No edema, No claudication, No palpitations Abdomen: + see HPI, + pain, + nausea, No vomiting, No diarrhea, No constipation Musculoskeletal: No joint pain, No muscle pain, No swelling, No calf pain Female : No dysuria, No urinary frequency, No hematuria, No incontinence, No abnormal vaginal bleeding, No vaginal discharge Neurologic: No memory loss, No paralysis, No weakness, No numbness/tingling, No vertigo, No balance problems Psychiatric: No depression symptoms, No anhedonism, No anxiety, No insomnia, No substance abuse Heme: No abnormal bleeding/bruising, No clotting problems, No swollen lymph nodes, No night sweats Endo: No fatigue, No excessive thirst, No excessive urination Skin: No rash, No itch, No new/changing skin lesions, No color change, No bleeding Objective Vital Signs Date Time Temp Pulse Resp B/P (MAP) Pulse Ox O2 Delivery O2 Flow Rate FiO2 12/22/16 15:03 37.1 66 18 114/70 (85) 96 Room Air 12/22/16 13:11 36.8 69 16 97/60 (72) 95 Room Air 12/22/16 08:00 Room Air 12/22/16 07:07 36.9 64 16 106/63 (77) 96 Room Air 12/22/16 03:00 36.9 62 18 119/72 (88) 95 Room Air 12/21/16 23:15 Room Air 12/21/16 22:50 36.9 58 18 127/74 (91) 95 Room Air 12/21/16 19:01 36.7 65 18 114/67 (83) 95 Room Air 12/21/16 18:00 36.5 60 18 121/71 (88) 96 Room Air 12/21/16 17:00 36.4 59 18 135/80 (98) 99 Nasal Cannula 1.0 12/21/16 16:30 36.5 61 18 129/80 (96) 100 Nasal Cannula 1.0 12/21/16 16:00 100 Nasal Cannula 2.0 12/21/16 16:00 36.6 51 16 129/75 (93) 100 Nasal Cannula 2.0 12/21/16 16:00 100 Nasal Cannula 2.0 12/21/16 15:21 48 12 145/83 99 12/21/16 15:21 49 12 12/21/16 15:16 137/79 12/21/16 15:16 36.3 48 18 145/83 99 Nasal Cannula 2 12/21/16 15:15 54 19 12/21/16 15:15 54 19 98 Physical Exam General Appearance: WD/WN, no apparent distress Eyes: normal inspection, PERRL, EOMI, sclerae normal ENT: normal ENT inspection, hearing grossly normal, pharynx normal Neck: supple, no adenopathy, thyroid normal, no JVD, no carotid bruits, trachea midline Respiratory/Chest: chest non-tender, lungs clear, normal breath sounds, no respiratory distress, no accessory muscle use, + decreased breath sounds Cardiovascular: regular rate, rhythm, no edema, no gallop, no JVD, no murmur Abdomen: normal bowel sounds, soft, no organomegaly, no pulsatile mass, + guarding (mild) Extremities: normal range of motion, non-tender, normal inspection, no pedal edema, no calf tenderness, normal capillary refill, pelvis stable Neurologic/Psychiatric: 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, no motor/sensory deficits, alert, normal mood/affect, oriented x 3 Skin: normal color, warm/dry, no rash Lymphatic: no adenopathy Laboratory Results Last 24 Hours Test 12/21/16 18:10 12/22/16 06:31 Prothrombin Time 10.7 SECONDS Prothromb Time International Ratio 1.0 Hepatitis B Surface Antigen NEG Hepatitis C Antibody NEG White Blood Count 7.52 K/uL Red Blood Count 4.96 M/uL Hemoglobin 13.7 g/dL Hematocrit 40.6 % Mean Corpuscular Volume 81.9 fL Mean Corpuscular Hemoglobin 27.6 pg Mean Corpuscular Hemoglobin Concent 33.7 g/dl Platelet Count 191 K/uL Mean Platelet Volume 10.6 fL Neutrophils (%) (Auto) 72.5 % Lymphocytes (%) (Auto) 18.2 % Monocytes (%) (Auto) 8.9 % Eosinophils (%) (Auto) 0.1 % Basophils (%) (Auto) 0.0 % Neutrophils # (Auto) 5.45 K/uL Lymphocytes # (Auto) 1.37 K/uL Monocytes # (Auto) 0.67 K/uL Eosinophils # (Auto) 0.01 K/uL Basophils # (Auto) 0.00 K/uL RDW Standard Deviation 41.1 fL RDW Coefficient of Variation 13.7 % Immature Granulocyte % (Auto) 0.3 % Immature Granulocyte # (Auto) 0.02 K/uL Sodium Level 139 mmol/L Potassium Level 3.7 mmol/L Chloride Level 105 mmol/L Carbon Dioxide Level 27 mmol/L Anion Gap 7.0 mmol/L Blood Urea Nitrogen 11 mg/dl Creatinine 0.82 mg/dl Est Creatinine Clear Calc Drug Dose 76.4 ml/min Estimated GFR () 89.5 Estimated GFR (Non- 77.2 BUN/Creatinine Ratio 13.7 Random Glucose 98 mg/dl Calcium Level 9.1 mg/dl Magnesium Level 2.1 mg/dl Total Bilirubin 1.4 mg/dl Direct Bilirubin 0.8 mg/dl Aspartate Amino Transf (AST/SGOT) 106 U/L Alanine Aminotransferase (ALT/SGPT) 179 U/L Alkaline Phosphatase 110 U/L Total Protein 6.2 gm/dl Albumin 3.1 gm/dl Assessment and Plan Pt is a 61 yo female admitted on 12/20/2016 because of Symptomatic cholelithiasis , nausea/vomiting, epigastric abdominal pain, Symptomatic cholelithiasis s/p lap michaela, post op day 1 post op supportive care, advance as tolerated MRCP done on today, per report in below: 1. Multiple T2 bright left lobe hepatic mass is likely representing hemangiomas 2. Mild dilatation of the common hepatic duct. Slightly beaded left main hepatic duct 3. Cholelithiasis. No common bile duct calculi identified 4. Normal pancreatic duct abn LFT, today mild elevation of total bili, hepatitis panel ordered, diet per surgeon -Zofran as needed when necessary for nausea - Protonix iv 2 by mouth - Tylenol as needed Current smoker-smoking cessation recs again in bedside The patient primarily speaks Dutch, but does speak a little bit of Montenegrin and between her and her who speaks a little bit of Dutch, Discussed with surgeon , doing well clinically however LFT's elevated today Per surgeon , CBD did appear dilated at time of surgery. may need repeat mrcp vs ercp if LFT's continue to climb Will hold d/c for now and repeat LFT's tomorrow. Prophylaxis-SCDs, and increase activity Disposition-full code Continued [facility] stay due to: multiple IV medications needed Discharge planning: home
[2016-12-22] MEDS: ONDANSETRON INJ 2 MG/ML 2 ML VIAL IV PRN (18:20)
[2016-12-22 23:05] VITALS: BP 117/71; PULSE 55; TEMP 37.1; O2SAT 95
[2016-12-23 07:33] VITALS: BP 111/72; PULSE 53; TEMP 36.8; O2SAT 95
[2016-12-23 07:34] LABS: BASO % 0.2 %; BASO ABS # 0.01 K/uL (0-0.2); COMPLETE YES; EOS % 1.9 %; HEMATOCRIT 40.5 % (37-47); IG% 0.2 %; LYMPH % 44.9 %; LYMPH ABS # 2.12 K/uL (1.2-3.4); MEAN CELL VOLUME 83.7 fL (80-100); MEAN CORPUSCULAR HEMOGLOBIN 28.7 pg (25-34); MEAN CORPUSCULAR HGB CONC 34.3 g/dl (32-36); MEAN PLATELET VOLUME 11.3 fL (7.4-10.4); MONO % 8.9 %; NEUT % 43.9 %; PLATELET COUNT 165 K/uL (130-400); RED BLOOD COUNT 4.84 M/uL (4.2-5.4); WHITE BLOOD COUNT 4.72 K/uL (4.8-10.8)
[2016-12-23 08:06] LABS: BUN/CREATININE RATIO 18.4 (10-20); CALCIUM 8.7 mg/dl (8.5-10.1); CREATININE 0.94 mg/dl (0.60-1.20); MAGNESIUM 2.1 mg/dl (1.8-2.4); POTASSIUM 4.1 mmol/L (3.5-5.1)
--- NOTE | 2016-12-23 09:21 | Surgery Progress Note ---
Surgery Progress Note Date of Service Dec 23, 2016. Subjective Post OP Day: 2 No complaints Objective Vital Signs: Date Time Temp Pulse Resp B/P (MAP) Pulse Ox O2 Delivery O2 Flow Rate FiO2 12/23/16 07:33 36.8 53 16 111/72 (85) 95 Room Air 12/22/16 23:30 Room Air 12/22/16 23:05 37.1 55 16 117/71 (86) 95 Room Air 12/22/16 16:10 Room Air 12/22/16 15:03 37.1 66 18 114/70 (85) 96 Room Air 12/22/16 13:11 36.8 69 16 97/60 (72) 95 Room Air Abdomen: soft Laboratory Results: Results Past 24 Hours Test 12/23/16 07:11 Range/Units White Blood Count 4.72 4.8-10.8 K/uL Red Blood Count 4.84 4.2-5.4 M/uL Hemoglobin 13.9 12.0-16.0 g/dL Hematocrit 40.5 37-47 % Mean Corpuscular Volume 83.7 80-100 fL Mean Corpuscular Hemoglobin 28.7 25-34 pg Mean Corpuscular Hemoglobin Concent 34.3 32-36 g/dl Platelet Count 165 130-400 K/uL Mean Platelet Volume 11.3 7.4-10.4 fL Neutrophils (%) (Auto) 43.9 % Lymphocytes (%) (Auto) 44.9 % Monocytes (%) (Auto) 8.9 % Eosinophils (%) (Auto) 1.9 % Basophils (%) (Auto) 0.2 % Neutrophils # (Auto) 2.07 1.4-6.5 K/uL Lymphocytes # (Auto) 2.12 1.2-3.4 K/uL Monocytes # (Auto) 0.42 0.11-0.59 K/uL Eosinophils # (Auto) 0.09 0-0.5 K/uL Basophils # (Auto) 0.01 0-0.2 K/uL RDW Standard Deviation 43.5 36.4-46.3 fL RDW Coefficient of Variation 14.0 11.5-14.5 % Immature Granulocyte % (Auto) 0.2 % Immature Granulocyte # (Auto) 0.01 0.00-0.02 K/uL Sodium Level 142 136-145 mmol/L Potassium Level 4.1 3.5-5.1 mmol/L Chloride Level 108 98-107 mmol/L Carbon Dioxide Level 29 21-32 mmol/L Anion Gap 5.0 3-11 mmol/L Blood Urea Nitrogen 17 7-18 mg/dl Creatinine 0.94 0.60-1.20 mg/dl Est Creatinine Clear Calc Drug Dose 66.6 ml/min Estimated GFR () 75.9 Estimated GFR (Non- 65.5 BUN/Creatinine Ratio 18.4 10-20 Random Glucose 83 70-99 mg/dl Calcium Level 8.7 8.5-10.1 mg/dl Magnesium Level 2.1 1.8-2.4 mg/dl Total Bilirubin 0.8 0.2-1 mg/dl Direct Bilirubin 0.3 0-0.2 mg/dl Aspartate Amino Transf (AST/SGOT) 155 15-37 U/L Alanine Aminotransferase (ALT/SGPT) 277 12-78 U/L Alkaline Phosphatase 133 45-117 U/L Total Protein 6.4 6.4-8.2 gm/dl Albumin 3.2 3.4-5.0 gm/dl Assessment & Plan s/p lap michaela bilirubin normalized discussed with Dr. Justino russell for d/c from surgical standpoint
[2016-12-23 10:17] VITALS: BP 111/72; PULSE 53; TEMP 36.8; O2SAT 95
[2016-12-23] MEDS ORDERED: ONDA4TAB10 SL (10:17)
--- NOTE | 2016-12-24 08:57 | Discharge Summary ---
Discharge Summary Date of Service Dec 23, 2016. Discharge Summary Admission Date: Dec 20, 2016 at 17:49 Discharge Date: Dec 23, 2016 Discharge Disposition: Home Principal Diagnosis: Cholelithiasis s/p cholecystectomy Problems/Secondary Diagnoses: Elevated LFT Procedures: Lap cholecystectomy Consultations: General surgery Medication Reconciliation New Medications: Hydrocodone/Acetaminophen 5MG/325MG ([place] 5MG/325MG) Tab 1-2 TABLET PO Q4H PRN for Pain, #30 TAB Ondasetron Odt (Zofran Odt) 4 Mg Tab 4 MG SL Q6H PRN for Nausea or Vomiting, #20 TAB Discharge Exam Patient feeling well, minimal pain, eating well. Discussed LFT results with Dr. Badillo in the morning on 12/23, since bilirubin was normal, he was okay with patient being discharged home with repeat labs in a few days. discussed with patient and her at the bedside. Review of Systems: Constitutional: No fever, No chills, No sweats, No weight loss, No weakness , No fatigue, No problem reported Eyes: No worsening of vision, No eye pain, No redness, No discharge, No diplopia, No problem reported ENT: No hearing loss, No unusual epistaxis, No nasal symptoms, No sore throat, No tinnitus, No dental problems, No trouble swallowing, No problem reported Respiratory: No cough, No sputum, No wheezing, No shortness of breath, No dyspnea on exertion, No dyspnea at rest, No hemoptysis, No problem reported Cardiovascular: No chest pain, No orthopnea, No PND, No edema, No claudication, No palpitations, No problem reported Abdomen: + pain (minimal in RUQ, mostly around incision sites), + nausea ( mild, no vomiting), No vomiting, No diarrhea, No constipation, No GI bleeding, No problem reported Musculoskeletal: No joint pain, No muscle pain, No swelling, No calf pain, No problem reported Genitourinary - Female: No dysuria, No urinary frequency, No urinary urgency , No urinary incontinence, No urinary retention, No hematuria Neurologic: No memory loss, No paralysis, No weakness, No numbness/tingling , No vertigo, No balance problems, No problem reported Psychiatric: No depression symptoms, No anhedonism, No anxiety, No insomnia , No substance abuse, No problem reported Endocrine: No fatigue, No excessive thirst, No excessive urination, No problem reported Hematologic / Lymphatic: No abnormal bleeding/bruising, No clotting problems , No swollen lymph nodes, No night sweats, No problem reported Integumentary: No rash, No itch, No new/changing skin lesions, No color change, No bleeding, No problem reported Physical Exam: General Appearance: WD/WN, no apparent distress Eyes: normal inspection, EOMI, sclerae normal ENT: normal ENT inspection, hearing grossly normal, pharynx normal Neck: supple, no adenopathy, no JVD, trachea midline Respiratory/Chest: chest non-tender, lungs clear, normal breath sounds, no respiratory distress, no accessory muscle use Cardiovascular: regular rate, rhythm, no edema, no gallop, no JVD, no murmur , normal peripheral pulses Abdomen / GI: normal bowel sounds, soft, no organomegaly, + tenderness ( minimal, incision sites) Extremities: normal inspection, no calf tenderness, normal capillary refill , no pedal edema, normal range of motion, pelvis stable 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 Badillo, instructions given Mild elevated in LFT: occurred post op AST/ALT again slightly higher on 12/23 bilirubin however down to normal d/w Dr. Badillo, patient okay for discharge, no need for ERCP will repeat LFT in a week, results to Dr. Badillo Current smoker-smoking cessation recs again in bedside Total Time Spent: Less than 30 minutes This includes examination of the patient, discharge planning, medication reconciliation, and communication with other providers. Discharge Instructions Please refer to the electronic Patient Visit Report (Discharge Instructions) for additional information. Follow-Up Dr. Badillo next week Additional Copies To Harpreet Badillo D.O.
== END 2016-12-23 10:55 | disposition home or self-care (01) ==
LOC: EDBD 12:02 → C.EDB 12:07 → C.MSN 17:49 → ENRESERV 18:44
PROVIDERS: ADMIT Family Medicine; ATTEND Internal Medicine
DX: K80.12 Calculus of gallbladder with acute and chronic cholecystitis without obstruction (principal); R79.89 Other specified abnormal findings of blood chemistry; F17.210 Nicotine dependence, cigarettes, uncomplicated

== ENCOUNTER → 2016-12-27 | Outpatient (CLI) | payer OTHER ==
[2016-12-27 12:32] LABS: ALT/SGPT 109 U/L (12-78); AST/SGOT 20 U/L (15-37); BLOOD UREA NITROGEN 13 mg/dl (7-18); BUN/CREATININE RATIO 13.9 (10-20); CALCIUM 9.4 mg/dl (8.5-10.1); CARBON DIOXIDE 30 mmol/L (21-32); CHLORIDE 109 mmol/L (98-107); GLUCOSE 90 mg/dl (70-99); SODIUM 143 mmol/L (136-145)
[2016-12-27 12:35] LABS: ALKALINE PHOSPHATASE 125 U/L (45-117)
== END | disposition home or self-care (01) ==
LOC: C.LABPVFM 08:23
PROVIDERS: ATTEND Internal Medicine
DX: Z98.890 Other specified postprocedural states (principal); Z87.19 Personal history of other diseases of the digestive system

== ENCOUNTER → 2017-08-13 | Outpatient (CLI) | payer OTHER ==
[~2017-08-13] MED LIST changes: +ALBE1TAB PO; -HYDR-5688 PO; +MULT-506 PO; -ONDA4TAB10 SL; +[UNRECOGNIZED DRUG - OTHER] PO
--- NOTE | 2017-08-13 08:37 | Discharge Instructions ---
Discharge Instructions Procedure Procedure Date: Aug 13, 2017. Reason for visit: Left Mass. Discharge Discharge Date: Aug 13, 2017. Discharge Diagnosis: post left breast ultrasound guided core biopsy Instructions Activity Recommendations: Additional Limitations (see below) Return to School/Work: no limitations Recommended Home Diet: No Limitations Provider Instructions: ACTIVITY RECOMMENDATIONS: * No lifting, pushing, pulling or exercising the affected side for three days. RETURN TO SCHOOL/WORK: * You may return to work/school after the procedure, but do not perform any strenuous activities for 24 to 48 hours. MEDICATIONS: * Tylenol (two 325 mg) every four to six hours if needed for mild pain (if not allergic to Tylenol). DIET: * Resume previous diet. SPECIAL CARE INSTRUCTIONS: * Keep biopsy site dry for 24 hours. May shower after 24 hours, but do not soak (bathe) incision. * May remove Tegaderm (plastic patch) tomorrow AFTER showering. * Leave the steri-strips on for one week. Allow the steri-strips to fall off by themselves. If not off after one week, you may remove them. You may place a Bandaid crosswise over the strips, if desired. * Apply ice 10 minutes on and 10 minutes off as needed. * Wear a bra at bedtime to sleep more comfortably for 2-3 days. * Your referring physician should have the results after approximately 5 to 7 business days. * Call for unusual bleeding, fever, drainage, etc or if you have any questions call [phone] during normal business hours or after hours call Dr Cervantes, . FOLLOW UP VISIT: Follow-up with Referring Physician as scheduled. Allergies Coded Allergies: Morphine (Verified Allergy, Unknown, facial swelling, 08/11/17) Uncoded Allergies: Allergic reaction to unspecified contrast medium (Allergy, Intermediate, DELIRIUM, Swelling, 12/20/16) Unspecified contrast medium [place] Recommendations: Call your doctor if: * Temperature above 101 degrees * Pain not relieved by pain medicine ordered * There is increased drainage or redness from any incision * You have any unanswered questions or concerns. Your Doctors Instructions noted above were prepared by provider Zonia Cervantes. Patient Signature Section: Patient Instructions Signature Page Sherita Joe Benigno Patient (or Guardian) Signature/Date: I have read and understand the instructions given to me by my caregivers. Caregiver/RN/Doctor Signature/Date: The above-named patient and/or guardian has received patient instructions on this date. + Original Patient Signature Page (only) stays with chart. Please make copy for patient.
--- NOTE | 2017-08-13 15:38 | MAMMOGRAPHY REPORT ---
UNILATERAL LEFT DIGITAL DIAGNOSTIC MAMMOGRAM TOMOSYNTHESIS: 08/13/2017 CLINICAL HISTORY: Status post ultrasound-guided core biopsy of a small indeterminate hypoechoic 4 mm mass in the 1:00 left breast identified on ultrasound. Patient has a history of prior benign biopsy in the lower inner quadrant of the left breast. Please refer to the report from left breast ultrasound-guided core biopsy performed at the same time for full detail. IMPRESSION: POST PROCEDURE IMAGING FOR MARKER PLACEMENT Please refer to the report from left breast ultrasound-guided core biopsy performed at the same time for full detail. Approximately 10% of breast cancers are not detected with mammography. A negative mammographic report should not delay biopsy if a clinically suggestive mass is present. Zonia Cervantes M.D. ay/:08/13/2017 08:36:24 Sheet Rock Applicator: Jessica PUTNAM)(Binta), [facility] BI-RADS Code: Post Procedure Imaging For Marker Placement
--- NOTE | 2017-08-14 15:15 | MAMMOGRAPHY REPORT ---
ULTRASOUND GUIDED BIOPSY LEFT BREAST: 08/13/2017 CLINICAL HISTORY: Indeterminate 7.5 mm solid versus cystic mass in the 1:00 left breast. Patient pre sents for ultrasound-guided core biopsy. Patient has a history of prior benign biopsy in the lower i nner quadrant of the left breast. COMPARISON: Comparison is made to exams dated: 07/22/2017 mammogram, 07/22/2017 ultrasound, 10/01/2016 m ammogram, 03/17/2015 mammogram, 03/17/2014 ultrasound biopsy, and 02/09/2014 mammogram - [facility]. PATIENT CONSENT: The procedure, risks and benefits were discussed with the patient and informed conse nt was obtained both verbally and in writing, with the use of a Italian ground support equipment fitter via telephone. Witness is Lindsey Carranza, extractions technologist. Specific risks to this procedure include: ble eding, infection, puncture of adjacent structure, nontarget biopsy, sampling error, pain, metal aller gy and medication reaction. PROCEDURE DESCRIPTION: A time out was performed and the left breast was agreed as the site of biopsy. The skin was prepped and draped in the usual sterile fashion. The hypoechoic solid versus cystic 7.5 mm mass in the 1:00 left breast was chosen as the target for biopsy. Subcutaneous and intraparenchym al 1% buffered lidocaine, with and without epinephrine, was administered as local anesthesia. A skin incision was made. Through the incision, 3 samples were taken with a 14 gauge Achieve biopsy device. A wing shaped metallic marker was placed at the biopsy site. Hemostasis was achieved after manual co mpression. The patient tolerated the procedure well and there was no immediate complication. The [facility] ples were sent to the pathology department in an appropriately labeled container. Postprocedure left CC and ML tomosynthesis images were obtained. There is a new wing-shaped biopsy m arker clip in the 1:00 posterior left breast, at the site of the biopsied hypoechoic mass identified on ultrasound. No significant postbiopsy hematoma. IMPRESSION: ULTRASOUND GUIDED BIOPSY Status post ultrasound-guided core biopsy of an indeterminate hypoechoic solid versus cystic mass in the 1:00 left breast, with wing-shaped biopsy marker clip placed at the site. Pending benign pathology results, follow-up bilateral ultrasound is recommended to ensure stability o f other findings described on the diagnostic mammogram and ultrasound report dated July 22, 2017. The patient will receive notification of the biopsy results from her referring physician. Zonia Cervantes M.D. ay/:08/13/2017 16:22:14 Custom Feed Corn Operator: Jessica PUTNAM)(Binta), [facility]
== END | disposition home or self-care (01) ==
LOC: C.MAMM 08:04
PROVIDERS: ATTEND Obstetrics & Gynecology
DX: R92.8 Other abnormal and inconclusive findings on diagnostic imaging of breast (principal); N63.20 Unspecified lump in the left breast, unspecified quadrant

== ENCOUNTER → 2017-08-15 | Day surgery (SDC) | payer OTHER ==
[2017-08-11 11:53] VITALS: Ht 167.6 cm; Wt 75.0 kg
[~2017-08-15] VITALS: Ht 167.6 cm; Wt 75.0 kg
[~2017-08-15] MED LIST changes: +LIDOCAINE HCL 2% 2 ML VIAL (20MG/ML) ONE; +PROPOFOL IV EMULSION 10 MG/ML 20 ML VIAL IV ONE; +SODIUM CHLORIDE 0.9% 500ML 500 ML IV ONE
--- NOTE | 2017-08-15 10:28 | Endo History and Physical ---
History & Physical Date of Service: Aug 15, 2017. Chief Complaint: screening Referring Physician: Dr. Sanchez History of Present Illness 61 yo female who presents for screening colonoscopy. Past Surgical History Hx Cardiac Surgery: No Hx Internal Defibrillator: No Hx Pacemaker: No Hx Abdominal Surgery: Yes (NOREEN, ) Hx of Implantable Prosthesis: No Hx Post-Op Nausea and Vomiting: No Hx Cancer Surgery: No Hx Thoracic Surgery: No Hx Orthopedic: No Hx Urinary Tract Surgery: No Family History None Social History Smoking Status: Current Every Day Smoker Hx Substance Use: No Hx Alcohol Use: No Allergies Coded Allergies: Morphine (Verified Allergy, Unknown, facial swelling, 08/11/17) Uncoded Allergies: Allergic reaction to unspecified contrast medium (Allergy, Intermediate, DELIRIUM, Swelling, 12/20/16) Unspecified contrast medium Current Medications Reported Home Medications Medications Dose Route/Sig Max Daily Dose Days Date Category Dose Instructions Multivitamin (Multivitamins) Tab 1 Tab PO DAILY 08/11/17 Reported Albenza (Albendazole) 200 Mg Tab 400 Mg PO DAILY 08/11/17 Reported PT GOT PRESCRIPTION IN GALVA [Valdoxan] 25 Mg PO DAILY PRN 08/11/17 Reported PT GOT PRESCRIPTION IN GALVA Vital Signs Weight (Kilograms): 75 Height (Feet): 5 Height (Inches): 6 Date Time Temp Pulse Resp B/P (MAP) Pulse Ox O2 Delivery O2 Flow Rate FiO2 08/15/17 10:08 37.1 66 18 151/66 (94) 97 Room Air Physical Exam General Appearance: WD/WN, no apparent distress Respiratory/Chest: Auscultation: breath sounds normal Cardiovascular: Heart Auscultation: RRR Abdomen: Bowel Sounds: normal Inspection & Palpation: soft, non-distended, no tenderness, guarding & rebound Assessment and Plan Assessment: 61 yo female who presents for screening colonoscopy. Plan: Proceed with colonoscopy.
--- NOTE | 2017-08-15 11:20 | GI REPORT ---
Procedure Date: 08/15/2017 10:35 AM Procedure: Colonoscopy Indications: Screening for colorectal malignant neoplasm Medicines: Monitored Anesthesia Care Complications: No immediate complications. Estimated Blood Loss: Estimated blood loss: none. Procedure: Pre-Anesthesia Assessment: - Prior to the procedure, a History and Physical was performed, and patient medications and allergies were reviewed. The patient's tolerance of previous anesthesia was also reviewed. The risks and benefits of the procedure and the sedation options and risks were discussed with the patient. All questions were answered, and informed consent was obtained. Prior Anticoagulants: The patient has taken no previous anticoagulant or antiplatelet agents. ASA Grade Assessment: II - A patient with mild systemic disease. After reviewing the risks and benefits, the patient was deemed in satisfactory condition to undergo the procedure. After I obtained informed consent, the scope was passed under direct vision. Throughout the procedure, the patient's blood pressure, pulse, and oxygen saturations were monitored continuously. The scope was introduced through the anus and advanced to the terminal ileum. The colonoscopy was performed without difficulty. The patient tolerated the procedure well. The quality of the bowel preparation was good. The terminal ileum, ileocecal valve, appendiceal orifice, and rectum were photographed. Findings: The perianal and digital rectal examinations were normal. A 4 mm polyp was found in the ascending colon. The polyp was sessile. The polyp was removed with a cold snare. Resection and retrieval were complete. A 11 mm polyp was found in the sigmoid colon. The polyp was pedunculated. The polyp was removed with a hot snare. Resection and retrieval were complete. Non-bleeding internal hemorrhoids were found during retroflexion. The hemorrhoids were small. Impression: - One 4 mm polyp in the ascending colon, removed with a cold snare. Resected and retrieved. - One 5 mm polyp in the sigmoid colon, removed with a hot snare. Resected and retrieved. - Non-bleeding internal hemorrhoids. Recommendation: - Resume previous diet. - Continue present medications. - Repeat colonoscopy for surveillance based on pathology results. - Return to primary care physician as previously scheduled. Daryl Posey DO 08/15/2017 11:19:36 AM This report has been signed electronically. Note Initiated On: 08/15/2017 10:35 AM I attest to the content of the Intraoperative Record and orders documented therein, exceptions below
--- NOTE | 2017-08-15 11:32 | Discharge Instructions ---
Endoscopy Patient Instructions Date / Procedure(s) Performed Aug 15, 2017. Colonoscopy Allergy Information Coded Allergies: Morphine (Verified Allergy, Unknown, facial swelling, 08/11/17) Uncoded Allergies: Allergic reaction to unspecified contrast medium (Allergy, Intermediate, DELIRIUM, Swelling, 12/20/16) Unspecified contrast medium Discharge Date / Findings Aug 15, 2017. Colon polyps Internal hemorrhoids Medication Instructions OK to resume all medications today as prescribed Reported Home Medications Medications Dose Route/Sig Max Daily Dose Days Date Category Dose Instructions Multivitamin (Multivitamins) Tab 1 Tab PO DAILY 08/11/17 Reported Albenza (Albendazole) 200 Mg Tab 400 Mg PO DAILY 08/11/17 Reported PT GOT PRESCRIPTION IN BRAZIL [Valdoxan] 25 Mg PO DAILY PRN 08/11/17 Reported PT GOT PRESCRIPTION IN BRAZIL Provider Instructions Activity Restrictions - No exercising or heavy lifting for 24 hours. - Do not drink alcohol the day of the procedure. - Do not drive a car or operate machinery until the day after the procedure. - Do not make any important decisions or sign important papers in 24 hours after the procedure. Following Day: - Return to full activity which may include returning to work/school. Diet Start your diet with liquids and light foods (jello, soup, juice, toast). Then eat your usual diet if not nauseated. Treatment For Common After Affects For mild abdominal pain, bloating, or excessive gas: - Rest - Eat lightly - Lie on right side Follow-Up Information Follow-up with Dr. Sanchez as scheduled Anesthesia Information What You Should Know You have had a procedure that required some medicine to reduce anxiety and discomfort. This treatment is called moderate sedation. After receiving the treatment, you may be sleepy, but you will be able to breathe on your own. The effects of the treatment may last for several hours. Follow these instructions along with Activity/Diet recommendations noted above: * Do NOT do anything where dizziness or clumsiness would be dangerous. * Rest quietly at home today, then you can be up and about tomorrow. * Have a responsible person stay with you the rest of today. * You may have had an I.V. today. If so, you may take the dressing off later today. Recommendations Call your doctor if: * Trouble breathing * Continuous vomiting for more than 24 hours * Temperature above 101 degrees * Severe abdominal pain or bloating * Pain not relieved by pain medicine ordered * There is increased drainage or redness from any incision * A large amount of rectal bleeding greater than 2-3 tablespoons. (If you had a polyp/s removed or have hemorrhoids, a small amount of blood - from the rectum is to be expected.) * You have any unanswered questions or concerns. IN THE EVENT OF A SERIOUS EMERGENCY, GO TO THE NEAREST EMERGENCY ROOM Your discharge instructions were prepared by provider Daryl Posey. Patient Instructions Signature Page Sherita Laurent Patient (or Guardian) Signature/Date: I have read and understand the instructions given to me by my caregivers. Caregiver/RN/Doctor Signature/Date: The above-named patient and/or guardian has received patient instructions on this date. + Original Patient Signature Page (only) stays with chart. Please make copy for patient.
[2017-08-15 11:35] VITALS: BP 135/68; PULSE 62; O2SAT 100
--- NOTE | 2017-08-15 11:35 | Anesthesiology Progress Note ---
Anesthesia Post Op Note Date & Time Aug 15, 2017 at 11:35 Vital Signs Pain Intensity: 0 Vital Signs Past 12 Hours Date Time Temp Pulse Resp B/P (MAP) Pulse Ox O2 Delivery O2 Flow Rate FiO2 08/15/17 11:19 61 20 119/67 (84) 100 Room Air 08/15/17 11:04 37.1 66 18 151/66 (94) 97 Room Air 08/15/17 10:08 37.1 66 18 151/66 (94) 97 Room Air Notes Mental Status: alert / awake / arousable, participated in evaluation Pt Amnestic to Procedure: Yes Nausea / Vomiting: adequately controlled Pain: adequately controlled Airway Patency, RR, SpO2: stable & adequate BP & HR: stable & adequate Hydration State: stable & adequate Anesthetic Complications: no major complications apparent
== END | disposition home or self-care (01) ==
LOC: C.GI 09:02
PROVIDERS: ATTEND Internal Medicine
DX: Z12.11 Encounter for screening for malignant neoplasm of colon (principal); D12.2 Benign neoplasm of ascending colon; D12.5 Benign neoplasm of sigmoid colon; K64.8 Other hemorrhoids; Z88.5 Allergy status to narcotic agent; Z79.899 Other long term (current) drug therapy; F17.200 Nicotine dependence, unspecified, uncomplicated